=== PATIENT | female | born 1985 | race Caucasian/White ===

== ENCOUNTER → 2017-12-31 | Outpatient (CLI) | payer BC, OTHER ==
[~2017-12-31] MED LIST: ACHD5005 PO; BENZ56AE TP; CETI1TAB80 PO; FRS325T PO; IBP600T1 PO; OXYC-12 PO; PREN1TAB39 PO
--- NOTE | 2017-12-31 16:45 | Diagnostic Imaging Report ---
INDICATION: Back pain after fall 3 weeks ago. COMPARISON: None available. TECHNIQUE: Three views of the lumbar spine. FINDINGS: Lumbar spine has normal lordosis. No spondylolisthesis. Vertebral bodies are normal in stature without ankylosis. Slight levocurvature of lumbar spine may be positional or congenital in nature. SI joints are normal. Intervertebral disc space heights are preserved. No hypertrophic facet disease in the lumbar spine. IMPRESSION: 1. No fracture or malalignment in the lumbar spine. 2. No substantial degenerative changes. Dictated by: Dictated on workstation # [id number]
== END ==
LOC: RAD 16:09
PROVIDERS: ATTEND Family Medicine
DX: M54.5 Low back pain (principal); W19.XXXA Unspecified fall, initial encounter
CPT/HCPCS: 72100

== ENCOUNTER 2018-09-21 20:55 | Emergency (ER) | payer BC, OTHER ==
[~2018-09-21] VITALS: Ht 160 cm; Wt 53.5 kg
--- OUTSIDE RECORDS SUMMARY | 2018-09-21 21:12 | XMS REPORT | Continuity of Care Document ---
Author Author [facility] Organization [facility] Address Unknown Phone Unavailable Allergies Active Description Code Type Severity Reaction Onset Reported/Identified Relationship to Patient Clinical Status Yes cefprozil [id number] Drug Allergy Mild hive 07/28/2011 Yes erythromycin base [id number] Drug Allergy Mild NAUSEA 07/28/2011 Medications There is no data. Problems Date Dx Coded Attending Type Code Diagnosis Diagnosed By 07/20/2011 Ot 644.13 07/26/2011 Ot 644.13 07/30/2011 Ot 288.60 07/30/2011 Ot 646.81 07/30/2011 Ot 664.31 07/30/2011 Ot V27.0 02/05/2015 Ot 735.0 02/06/2015 CLAUDIA FROST DO S Ot 648.81 02/06/2015 FENCLADUIA DUMONT DO Ot 648.91 02/06/2015 CLAUDIA FROST DO Ot V02.51 02/06/2015 CLAUDIA FROST DO S Ot V06.1 02/06/2015 CLAUDIA FROST DO S Ot V27.0 01/03/2018 CELSO MYERS DO Ot M54.5 LOW BACK PAIN 01/03/2018 CELSO MYERS DO Ot W19.XXXA UNSPECIFIED FALL, INITIAL ENCOUNTER 01/12/2018 CELSO MYERS DO Ot M54.5 LOW BACK PAIN 01/12/2018 CELSO MYERS DO S Ot W19.XXXA UNSPECIFIED FALL, INITIAL ENCOUNTER Procedures There is no data. Results There is no data. Encounters ACCT No. Visit Date/Time Discharge Status Pt. Type Provider Facility Loc./Unit Complaint [id number] 09/15/2018 06:40:00 09/15/2018 23:59:59 CLS Preadmit ANA LAURA WANG DO [facility] RAD 14 WEEKS GESTATION OF [id number] 12/31/2017 16:09:00 12/31/2017 23:59:59 CLS Outpatient LOUIS SIEGLECELSO Raghavendra [facility] RAD M54.5 [id number] 02/04/2015 08:38:00 02/06/2015 17:00:00 DIS Inpatient MARGOT SIEGELCLAUDIA [facility] LDRP [id number] 02/05/2015 09:36:00 Document Registration [id number] 07/28/2011 10:18:00 Document Registration [id number] 07/26/2011 00:30:00 Document Registration [id number] 07/17/2010 15:14:00 Document Registration
[2018-09-21] MEDS ORDERED: AMOX500C2 (21:58)
--- NOTE | 2018-09-21 22:21 | ED Abdominal Pain ---
General Chief Complaint: Abdominal/GI Problems Stated Complaint: VOMITTING/15 WEEKS PREG Nursing Triage Note: n/v cramping, headache. 15wks Sepsis Screen: No Definite Risk Source of Information: Patient Exam Limitations: No Limitations History of Present Illness Date Seen by Provider: Sep 21, 2018 Time Seen by Provider: 22:21 Initial Comments Patient is a 33-year-old female who presents to the emergency room with complaints of nausea, vomiting, cramping and a headache. She reports that the cramping started this morning when she woke up shortly followed by nausea and vomiting. She reports that she is 15 weeks , has felt the baby move today, denies any vaginal bleeding. Timing/Duration: 12-24 Hours Severity/Quality: Cramping Location: Generalized Abdomen Associated Symptoms: Nausea/Vomiting Allergies and Home Medications Allergies Coded Allergies: Cefprozil (Verified Allergy, Mild, hive, 07/28/11) Erythromycin Base (Verified Allergy, Mild, NAUSEA, 07/28/11) Home Medications Vits W-Ca,Fe,Fa(<1MG) 1 Each Tablet, 1 EACH PO DAILY, (Reported) Patient Home Medication List Home Medication List Reviewed: Yes Review of Systems Review of Systems Constitutional: see HPI; No chills, No fever Gastrointestinal: See HPI, Abdominal Pain, Nausea, Vomiting Psychiatric/Neurological: See HPI, Headache All Other Systems Reviewed Negative Unless Noted: Yes Past Pkczaqh-Blpkqt-Esclpc Hx Past Med/Social Hx: Reviewed Nursing Past Med/Soc Hx Patient Social History Alcohol Use: Denies Use Recreational Drug Use: No Smoking Status: Never a Smoker 2nd Hand Smoke Exposure: No Recent Foreign Travel: No Contact w/Someone Who Travel: No Recent Infectious Disease Expo: No Recent Hopitalizations: No Immunizations Up To Date Tetanus Booster (TDap): Unknown Seasonal Allergies Seasonal Allergies: No Past Medical History Surgeries: Yes Orthopedic, Tonsillectomy Respiratory: No Cardiac: No Neurological: No : Yes Reproductive Disorders: No Sexually Transmitted Disease: No HIV/AIDS: No Genitourinary: No Gastrointestinal: No Musculoskeletal: No Endocrine: No HEENT: No Cancer: No Psychosocial: No Integumentary: No Blood Disorders: No Adverse Reaction/Blood Tranf: No Family Medical History Reviewed Nursing Family Hx Dementia 19 FATHER, Onset:40's - 50 Hypercholesterolemia 19 FATHER, Onset:40's - 50 19 MOTHER, Onset:30's - 40 Hypertension 19 FATHER, Onset:40's - 50 Thyroid disease 19 MOTHER, Onset:40's - 50 (HYPOTHYROIDISM) No Family History of: AIDS Abdominal aortic aneurysm Colbert's disease Alcoholism Alzheimer's disease Aphasia Arthritis Asthma Cancer of mouth Cardiovascular disease Cataracts Colon cancer Completed stroke Congenital disease Congenital heart disease Coronary thrombosis Cystic fibrosis Deafness or hearing loss Diabetes mellitus Drug abuse Dysphasia Fibrocystic disease of breast Gastroenteritis Glaucoma Headache disorder Infertility Kidney disease Myocardial infarction Neoplasm Not obtainable due to adoption Osteoporosis Parkinson's disease Prostate cancer Psychosocial problem Respiratory disorder Seizure disorder Severe allergy Tuberculosis Visual disorder Physical Exam Vital Signs Vital Signs - First Documented 09/21/18 21:55 Temp 97.5 Pulse 87 Resp 18 B/P (MAP) 108/76 (87) Pulse Ox 100 O2 Delivery Room Air Capillary Refill : Less Than 3 Seconds Height/Weight/BMI Height: 5'3.00" Weight: 118lbs. oz. 53.109333xr; 23.96 BMI Method:Stated General Appearance: WD/WN, no apparent distress Respiratory: chest non-tender, lungs clear, normal breath sounds, no respiratory distress, no accessory muscle use Cardiovascular: normal peripheral pulses, regular rate, rhythm, no edema, no gallop, no JVD, no murmur Gastrointestinal: normal bowel sounds, non tender, soft, no organomegaly, no pulsatile mass Neurologic/Psychiatric: alert, normal mood/affect, oriented x 3 Skin: normal color, warm/dry Progress/Results/Core Measures Results/Orders Lab Results Laboratory Tests Test 09/21/18 22:25 Range/Units White Blood Count 6.9 4.3-11.0 10^3/uL Red Blood Count 4.35 4.35-5.85 10^6/uL Hemoglobin 13.3 11.5-16.0 G/DL Hematocrit 38 35-52 % Mean Corpuscular Volume 87 80-99 FL Mean Corpuscular Hemoglobin 31 25-34 PG Mean Corpuscular Hemoglobin Concent 35 32-36 G/DL Red Cell Distribution Width 12.3 10.0-14.5 % Platelet Count 258 130-400 10^3/uL Mean Platelet Volume 8.8 7.4-10.4 FL Neutrophils (%) (Auto) 76 H 42-75 % Lymphocytes (%) (Auto) 15 12-44 % Monocytes (%) (Auto) 8 0-12 % Eosinophils (%) (Auto) 0 0-10 % Basophils (%) (Auto) 0 0-10 % Neutrophils # (Auto) 5.3 1.8-7.8 X 10^3 Lymphocytes # (Auto) 1.0 1.0-4.0 X 10^3 Monocytes # (Auto) 0.6 0.0-1.0 X 10^3 Eosinophils # (Auto) 0.0 0.0-0.3 10^3/uL Basophils # (Auto) 0.0 0.0-0.1 10^3/uL Urine Color YELLOW Urine Clarity SLIGHTLY CLOUDY Urine pH 5 5-9 Urine Specific Zenia 1.020 1.016-1.022 Urine Protein NEGATIVE NEGATIVE Urine Glucose (UA) NEGATIVE NEGATIVE Urine Ketones 3+ H NEGATIVE Urine Nitrite NEGATIVE NEGATIVE Urine Bilirubin NEGATIVE NEGATIVE Urine Urobilinogen NORMAL NORMAL MG/DL Urine Leukocyte Esterase 2+ H NEGATIVE Urine RBC (Auto) NEGATIVE NEGATIVE Urine RBC NONE /HPF Urine WBC 5-10 H /HPF Urine Squamous Epithelial Cells >50 H /HPF Urine Crystals NONE /LPF Urine Bacteria FEW H /HPF Urine Casts NONE /LPF Urine Mucus TRACE /LPF Urine Culture Indicated YES Sodium Level 136 135-145 MMOL/L Potassium Level 3.5 L 3.6-5.0 MMOL/L Chloride Level 103 98-107 MMOL/L Carbon Dioxide Level 22 21-32 MMOL/L Anion Gap 11 5-14 MMOL/L Blood Urea Nitrogen 8 7-18 MG/DL Creatinine 0.68 0.60-1.30 MG/DL Estimat Glomerular Filtration Rate > 60 BUN/Creatinine Ratio 12 Glucose Level 85 70-105 MG/DL Calcium Level 9.0 8.5-10.1 MG/DL Corrected Calcium 9.0 8.5-10.1 MG/DL Total Bilirubin 0.6 0.1-1.0 MG/DL Aspartate Amino Transf (AST/SGOT) 22 5-34 U/L Alanine Aminotransferase (ALT/SGPT) 10 0-55 U/L Alkaline Phosphatase 54 40-136 U/L Total Protein 7.0 6.4-8.2 GM/DL Albumin 4.0 3.2-4.5 GM/DL Amylase Level 36 25-125 U/L Lipase 22 8-78 U/L My Orders Conner - ROZ CAZARES Comprehensive Metabolic Panel (09/21/18 22:19) Lipase (09/21/18 22:19) Amylase (09/21/18 22:19) Ua Culture If Indicated (09/21/18 22:19) Saline Lock/Iv-Start (09/21/18 22:19) Cbc With Automated Diff (09/21/18 22:19) Ondansetron Injection (Zofran Injectio (09/21/18 22:30) Acetaminophen Tablet/Caplet (Tylenol T (09/21/18 22:30) Urine Culture (09/21/18 22:25) Medications Given in ED Current Medications Medications Dose Ordered Sig/Marcello Route Start Time Stop Time Status Last Admin Dose Admin Acetaminophen 650 mg ONCE ONCE PO 09/21/18 22:30 09/21/18 22:31 DC 09/21/18 22:30 650 MG Ondansetron HCl 4 mg ONCE ONCE IVP 09/21/18 22:30 09/21/18 22:31 DC 09/21/18 22:28 4 MG Vital Signs/I&O 09/21/18 09/21/18 21:55 22:30 Temp 97.5 97.5 Pulse 87 Resp 18 B/P (MAP) 108/76 (87) Pulse Ox 100 O2 Delivery Room Air Blood Pressure Mean: 87 Departure Impression Primary Impression: Nausea and vomiting Disposition: 01 HOME, SELF-CARE Condition: Stable/Unchanged Departure-Patient Inst. Decision time for Depature: 23:01 Referrals: CELSO MYERS DO (PCP/Family) Primary Care Physician Patient Instructions: Nausea and Vomiting of (DC) Add. Discharge Instructions: Take medication as directed. Tylenol as directed by the bottle for pain relief. Clear liquid diet and advance as tolerated. Follow-up with your primary care provider and or CONCEPT ARTIST as needed. Return back to the emergency room for any worsening symptoms or concerns as needed. All discharge instructions reviewed with patient and/or family. Voiced understanding. Scripts Ondansetron HCl (Zofran) 4 Mg Tab 4 MG PO PRN, #14 TAB Prov: ROZ CAZARES 09/21/18 ROZ CAZARES Sep 21, 2018 22:21
[2018-09-21] MEDS ORDERED: ONDANSETRON 4 MG/2 ML (SDV) Z0FRAN IVP ONE (22:30)
[2018-09-21] MEDS ORDERED: ACETAMINOPHEN 325 MG TABLET PO ONE (22:30)
[2018-09-21 22:38] LABS: BASOPHILS % (AUTO) 0 % (0-10); EOSINOPHILS % (AUTO) 0 % (0-10); HEMATOCRIT 38 % (35-52); HEMOGLOBIN 13.3 G/DL (11.5-16.0); LYMPHOCYTES % (AUTO) 15 % (12-44); MEAN CORPUSCULAR HEMOGLOBIN 31 PG (25-34); MEAN CORPUSCULAR HGB CONC 35 G/DL (32-36); MEAN CORPUSCULAR VOLUME 87 FL (80-99); MEAN PLATELET VOLUME 8.8 FL (7.4-10.4); MONOCYTES # (AUTO) 0.6 X 10^3 (0.0-1.0); MONOCYTES % (AUTO) 8 % (0-12); NEUTROPHILS # (AUTO) 5.3 X 10^3 (1.8-7.8); NEUTROPHILS % (AUTO) 76 % (42-75); PLATELET COUNT 258 10^3/uL (130-400); RED BLOOD COUNT 4.35 10^6/uL (4.35-5.85); RED CELL DISTRIBUTION WIDTH 12.3 % (10.0-14.5); WHITE BLOOD COUNT 6.9 10^3/uL (4.3-11.0)
[2018-09-21 22:39] LABS: BILIRUBIN,URINE NEGATIVE (NEGATIVE); CLARITY,URINE SLIGHTLY CLOUDY; COLOR,URINE YELLOW; GLUCOSE, URINE (UA) NEGATIVE (NEGATIVE); KETONES,URINE 3+ (NEGATIVE); LEUKOCYTE ESTERASE ,URINE 2+ (NEGATIVE); NITRITE,URINE NEGATIVE (NEGATIVE); PH,URINE 5 (5-9); PROTEIN,URINE NEGATIVE (NEGATIVE); UROBILINOGEN,URINE NORMAL (NORMAL)
[2018-09-21 22:51] LABS: BACTERIA,URINE FEW /HPF; SQUAMOUS EPITHELIAL CELL,UR >50 /HPF
[2018-09-21 22:58] LABS: ALANINE AMINOTRANSFERASE 10 U/L (0-55); ALKALINE PHOSPHATASE 54 U/L (40-136); AMYLASE 36 U/L (25-125); BILIRUBIN,TOTAL 0.6 MG/DL (0.1-1.0); BUN/CREATININE RATIO 12; CARBON DIOXIDE 22 MMOL/L (21-32); CHLORIDE 103 MMOL/L (98-107); CREATININE SERUM 0.68 MG/DL (0.60-1.30); GFR ESTIMATED > 60; GLUCOSE 85 MG/DL (70-105); LIPASE 22 U/L (8-78); POTASSIUM 3.5 MMOL/L (3.6-5.0); SODIUM 136 MMOL/L (135-145)
[2018-09-21] MEDS ORDERED: ONDN4T PO (23:03)
[2018-09-21] MEDS ORDERED: RX-ONDANSETRON 4 MG ODT (ZOFRAN) PPK #4 PO STA (23:04)
[2018-09-21 23:11] VITALS: BP 97/62
== END 2018-09-21 23:12 | disposition home or self-care (01) ==
LOC: EDUNIT# 20:55 → ER 20:57
DX: O21.9 Vomiting of pregnancy, unspecified (principal); Z3A.15 15 weeks gestation of pregnancy; Z88.0 Allergy status to penicillin; Z88.8 Allergy status to other drugs, medicaments and biological substances; Z90.89 Acquired absence of other organs; Z82.49 Family history of ischemic heart disease and other diseases of the circulatory system
CPT/HCPCS: 36415; 80053; 81000; 82150; 83690; 85025; 87088

== ENCOUNTER → 2018-10-31 | Outpatient (CLI) | payer BC, OTHER ==
[~2018-10-31] MED LIST changes: +AMOX500C2; +ONDN4T PO
--- NOTE | 2018-10-31 11:30 | Diagnostic Imaging Report ---
INDICATION: survey. TECHNIQUE: Multiple real-time grayscale images were obtained over the gravid uterus. COMPARISON: None. FINDINGS: There is a single live fetus in a cephalic presentation. heart rate was recorded at 134 beats per minute. Placenta is posterior. Amniotic fluid volume is normal. Cervical length is 4.8 cm. survey demonstrates kidneys, bladder and stomach to be unremarkable. brain is unremarkable. There is a four-chamber heart. There is a three-vessel cord with normal insertion. spine is somewhat limited due to position. Biometrical measurements are as follows: Biparietal 4.87 cm, age 20 weeks 6 days. Head circumference 19.29 cm, age 21 weeks 4 days. Abdominal circumference 16.41 cm, age 21 weeks 4 days. Femur length 3.64 cm, age 21 weeks 4 days. Sonographic estimate age: 21 weeks 3 days. Sonographic estimated date of delivery: 03/10/2019. Estimated Weight: 427 gm (+/- 62 gm). LMP percentile: 55%. heart rate: 134 beats per minute. number: 1 of 1. IMPRESSION: Single live IUP 21 weeks 3 days gestational age. Estimated date of confinement sonographically is 03/10/2019. survey is unremarkable although spine is somewhat limited due to position. Followup could be performed. Dictated by: Dictated on workstation # [id number]
== END ==
LOC: RAD 10:05
PROVIDERS: ATTEND Obstetrics & Gynecology
DX: Z36.89 Encounter for other specified antenatal screening (principal); Z3A.21 21 weeks gestation of pregnancy
CPT/HCPCS: 76805

== ENCOUNTER 2018-12-22 14:57 | Outpatient (CLI) | payer BC, OTHER ==
[~2018-12-22] VITALS: Ht 160 cm; Wt 63.1 kg
--- NOTE | 2018-12-22 14:55 | NUR ---
JOHANA DOAN presented to unit via AMB from DR. WANG, accompanied by SPOUSE, with c/o UPPER QUANTRANT PAIN. JOHANA DOAN weighed, gowned, voided, and to bed. 1500 EFHM and TOCO applied, VS taken. JOHANA DOAN oriented to bed controls, call light, TV, heat, and A/C controls.
[~2018-12-22 14:57] MED LIST changes: -OMEP20TA33 PO
[2018-12-22 15:00] VITALS: BP 120/79
[2018-12-22] MEDS ORDERED: D5 LR IV SOLUTION 1,000 ML IV SCH (15:01)
[2018-12-22] MEDS ORDERED: PROMETHAZINE INJ 25 MG/ML (PHENERGAN) AMP IVP PRN (15:15)
[2018-12-22] MEDS ORDERED: MEPERIDINE (DEMEROL) INJ 50 MG/ML IVP ONE (15:15)
[2018-12-22] MEDS ORDERED: ANTACID SUSP 30 ML UDC (MYLANTA) PO ONE (15:30)
[2018-12-22] MEDS ORDERED: DONNATAL PO ONE (15:30)
[2018-12-22] MEDS ORDERED: LIDOCAINE 2% VISCOUS 15 ML UDC PO ONE (15:30)
--- NOTE | 2018-12-22 15:40 | NUR ---
DR. WANG ON UNIT. REVIEWED MONITOR STRIP. FEBRUARY D/C. UTERINE IRRITABILITY AND MOVEMENT NOTED. FHR INITIALLY 135 AND 130 AT END OF TRACING WITH ACCELS NOTED. MOD VARIABILITY NOTED AND APPROPRIATE FOR GESTATIONAL AGE. ULTRASOUND HERE TO DO A GALLBLADDER SONOGRAM. EFM OFF.
[2018-12-22 15:57] LABS: ALANINE AMINOTRANSFERASE 18 U/L (0-55); ALBUMIN 3.6 GM/DL (3.2-4.5); ALKALINE PHOSPHATASE 96 U/L (40-136); BILIRUBIN,TOTAL 0.3 MG/DL (0.1-1.0); BUN/CREATININE RATIO 10; CALCIUM 8.6 MG/DL (8.5-10.1); CARBON DIOXIDE 22 MMOL/L (21-32); CHLORIDE 107 MMOL/L (98-107); CREATININE SERUM 0.62 MG/DL (0.60-1.30); GFR ESTIMATED > 60; GLUCOSE 87 MG/DL (70-105); POTASSIUM 3.5 MMOL/L (3.6-5.0); SODIUM 137 MMOL/L (135-145); TOTAL PROTEIN 6.4 GM/DL (6.4-8.2)
--- NOTE | 2018-12-22 17:00 | NUR ---
CONTINUES TO RECEIVE IV FLUIDS. SPOUSE AT BEDSIDE.
--- NOTE | 2018-12-22 17:42 | Diagnostic Imaging Report ---
CLINICAL INDICATION: Patient with acute right upper quadrant pain. EXAM: Right upper quadrant ultrasound. COMPARISON: Ultrasound of the right upper quadrant dated 06/05/2007. FINDINGS: Limited exam due to patient's body habitus and overlying bowel gas which limits evaluation of the abdominal structures. The pancreas is not visualized on this exam and obscured by overlying bowel gas. The visualized portion of the liver has normal echogenicity and echotexture. The liver surface is smooth. The liver measures 13.3 cm in craniocaudal dimension. There is no gross liver mass seen. There is no intrahepatic or extrahepatic ductal dilatation. The common bile duct measures 4 mm. Gallbladder shows no evidence of sludge or stone. Gallbladder wall is 3 mm which is upper limits of normal and nonspecific. There is no pericholecystic fluid. There is no sonographic Alonso sign. Gallbladder is hvky-lb-gzfwuxzghe distended. The right kidney has normal echogenicity, size, and shape but no hydronephrosis or mass. The right kidney measures 9.8 cm in craniocaudal dimension. There is no intra-abdominal free fluid. IMPRESSION: 1: Limited exam due to overlying bowel gas and patient's body habitus. 2: Incomplete visualization of the pancreas. If there is clinical concern for pancreatic abnormality, serology tests may better evaluate. 3: Otherwise, there is no evidence of acute abnormality on this ultrasound exam. 4: Gallbladder is unremarkable as visualized. Dictated by: Dictated on workstation # [id number]
[2018-12-22 18:22] VITALS: BP 113/69
--- NOTE | 2018-12-22 18:45 | NUR ---
VSS. REPORTS A DIARRHEA STOOL. PT FLUSHED IT. SPOUSE LEFT TO HAVE RX FILLED. RATES PAIN 3/10 IN RUQ.
--- NOTE | 2018-12-22 19:15 | NUR ---
REPORT TO PERICO ANTONIO.
[2018-12-22] MEDS ORDERED: OMEP20TA33 PO (19:29)
--- NOTE | 2018-12-22 20:10 | NUR ---
IV removed. Discharge instructions reviewed with pt. Pt verbalizes understanding, and signs discharge paperwork.
--- NOTE | 2018-12-22 20:19 | NUR ---
Pt. walked out with
[2018-12-22] MEDS ORDERED: CATHETER FLUSH 10 ML SYR IV SCH (22:00)
== END 2018-12-22 18:10 | disposition home or self-care (01) ==
LOC: WSo 14:57 → LDRP 15:00 → WSo 18:10
PROVIDERS: ATTEND Obstetrics & Gynecology
DX: O99.89 Other specified diseases and conditions complicating pregnancy, childbirth and the puerperium (principal); R10.11 Right upper quadrant pain
CPT/HCPCS: 36415; 76705; 80053; 96361; 96374; 99213

== ENCOUNTER → 2018-12-22 | Outpatient (CLI) | payer BC, OTHER ==
[~2018-12-22] MED LIST changes: +OMEP20TA33 PO
--- NOTE | 2018-12-22 16:47 | Diagnostic Imaging Report ---
INDICATION: Follow up anatomy. TECHNIQUE: Multiple real-time grayscale images were obtained over the gravid uterus. COMPARISON: 10/31/2018. FINDINGS: There is a single live fetus in a cephalic presentation. heart rate was recorded at 167 beats per minute. Placenta is posterior. The amniotic fluid volume is normal. Evaluation of the spine was performed. spine is unremarkable on today's study. Biometrical measurements are as follows: Biparietal 7.60 cm, age 30 weeks 4 days. Head circumference 27.67 cm, age 30 weeks 2 days. Abdominal circumference 25.78 cm, age 30 weeks 0 days. Femur length 5.63 cm, age 29 weeks 5 days. Sonographic estimate age: 30 weeks 1 days. Sonographic estimated date of delivery: 03/01/2019. Estimated Weight: 1475 gm (+/- 215 gm). LMP percentile: 81%. heart rate: 167 beats per minute. number: 1 of 1. IMPRESSION: Single live IUP of approximately 30 weeks gestational age. spine was better visualized on today's study and appears unremarkable. Dictated by: Dictated on workstation # [id number]
== END ==
LOC: RAD 13:04
PROVIDERS: ATTEND Obstetrics & Gynecology
DX: Z36.89 Encounter for other specified antenatal screening (principal); Z3A.30 30 weeks gestation of pregnancy
CPT/HCPCS: 76816

== ENCOUNTER 2019-02-13 16:25 | Outpatient (CLI) | payer BC, OTHER ==
[~2019-02-13] VITALS: Ht 160 cm; Wt 67.2 kg
--- NOTE | 2019-02-13 16:16 | NUR ---
JOHANA DOAN presented to unit via AMBULATORY from HOME, accompanied by MOTHER, with c/o CONTRACTIONS. JOHANA DOAN weighed, gowned, voided, and to bed. EFHM and TOCO applied, VS taken. JOHANA DOAN oriented to bed controls, call light, TV, heat, and A/C controls.
[~2019-02-13 16:25] MED LIST changes: +OMEP20TA33 PO
[2019-02-13 16:28] VITALS: BP 121/72
[2019-02-13 16:52] LABS: BILIRUBIN,URINE NEGATIVE (NEGATIVE); CLARITY,URINE CLEAR; COLOR,URINE YELLOW; GLUCOSE, URINE (UA) NEGATIVE (NEGATIVE); KETONES,URINE NEGATIVE (NEGATIVE); LEUKOCYTE ESTERASE ,URINE 2+ (NEGATIVE); NITRITE,URINE NEGATIVE (NEGATIVE); PH,URINE 6.5 (5-9); PROTEIN,URINE NEGATIVE (NEGATIVE); UROBILINOGEN,URINE NORMAL (NORMAL)
[2019-02-13 17:15] LABS: BACTERIA,URINE MODERATE /HPF
--- NOTE | 2019-02-13 17:35 | NUR ---
DR. PIZANO NOTIFIED OF PT'S ARRIVAL, , 36.2 WEEKS, C/O CTXS, SVE X2, REVIEW OF STRIP, UA RESULTS, NEW ORDERS RECEIVED.
[2019-02-13] MEDS ORDERED: D5 LR IV SOLUTION 1,000 ML IV ONE (17:46)
--- NOTE | 2019-02-13 17:47 | NUR ---
DR. PIZANO CALLED FOR CLARIFICATION ON ABX DUE TO ALLERGY. NEW ORDER RECEIVED.
[2019-02-13] MEDS: D5 LR IV SOLUTION 1,000 ML IV SCH (18:00)
[2019-02-13] MEDS ORDERED: CATHETER FLUSH 10 ML SYR IV PRN (18:00)
[2019-02-13] MEDS ORDERED: CLINDAMYCIN 900 MG/50 ML IVPB 50 ML IV ONE (18:00)
[2019-02-13] MEDS: CLINDAMYCIN 900 MG/50 ML IVPB 50 ML IV SCH (18:06)
[2019-02-13] MEDS ORDERED: CETI1TAB61 PO (18:21)
[2019-02-13] MEDS ORDERED: PARO10TA81 PO (18:22)
--- NOTE | 2019-02-13 19:00 | NUR ---
REFER TO LABOR FLOW SHEET.
--- NOTE | 2019-02-13 19:18 | NUR ---
DR. PIZANO NOTIFIED OF LATEST SVE, REVIEW OF STRIP, CURRENT PAIN. NEW ORDERS RECEIVED.
[2019-02-13] MEDS ORDERED: BUTORPHANOL INJ 2 MG/ML (STADOL) VIAL ONE (20:14)
[2019-02-13] MEDS ORDERED: BUTORPHANOL INJ 2 MG/ML (STADOL) VIAL IV ONE (20:15)
[2019-02-14] MEDS: D5 LR IV SOLUTION 1,000 ML IV SCH ×2 (01:09→07:34)
[2019-02-14] MEDS: CLINDAMYCIN 900 MG/50 ML IVPB 50 ML IV SCH (01:50)
[2019-02-14 02:00] VITALS: BP 98/57
[2019-02-14 07:25] VITALS: BP 118/69
--- NOTE | 2019-02-14 07:30 | NUR ---
ASSESSMENT COMPLETED. VSS. OCC CTX.
--- NOTE | 2019-02-14 07:54 | NUR ---
ORDER TO GIVE PT A REGULAR DIET AND TO SEND HOME IF NO CTXS.
--- NOTE | 2019-02-14 09:43 | NUR ---
EATING REGULAR DIET. PREPARING FOR DISCHARGE.
[2019-02-14 10:00] VITALS: BP 118/69
--- NOTE | 2019-02-14 10:00 | NUR ---
DISMISSED AMB FROM WS IN STABLE CONDITION ACC BY MOTHER.
--- NOTE | 2019-02-15 16:05 | Physician Query-Final Dx ---
Clinic Account Progress/Dx DIAGNOSIS: Date Seen by Provider: Feb 14, 2019 Time Seen by Provider: 00:00 Intrauterine at 36 2/7 weeks 2. Pelvic Pain 3. Threatened Labor 4. UTI Gestational Age in Weeks: 36 Gestational Age in Days: 25 Progress Note: Ms. Swift was not physically seen by me. Was managed over the telephone and discharge. She was diagnosed with gestation at 36 2/7 weeks, Pelvic Pain, Threatened Labor, and UTI. After treatment with IV fluids and IV antibiotics, she was discharged to home. MERRY Mcduffie February 15, 2019 16:05 DELROY PIZANO DO February 20, 2019 07:24
== END 2019-02-14 10:00 | disposition home or self-care (01) ==
LOC: WSo 16:25 → LDRP 16:25 → WSo 02-14 10:00
PROVIDERS: ATTEND Obstetrics & Gynecology
DX: O23.43 Unspecified infection of urinary tract in pregnancy, third trimester (principal); O47.03 False labor before 37 completed weeks of gestation, third trimester; Z3A.36 36 weeks gestation of pregnancy
CPT/HCPCS: 81000; 87088; 96361; 96374; 96375; 96376; 99214

== ENCOUNTER 2019-02-15 11:42 | Inpatient (IN) | payer BC, OTHER ==
[~2019-02-15] VITALS: Ht 160 cm; Wt 67.2 kg
--- NOTE | 2019-02-15 11:40 | NUR ---
Arrived to floor from office for labor. Wt obtained and to room 317. Gowned and urine sample obtained. To bed and oriented to room, call light and surroundings. family at bedside.
[~2019-02-15 11:42] MED LIST changes: +CETI1TAB61 PO; +PARO10TA81 PO
[2019-02-15 12:00] VITALS: BP 126/72
[2019-02-15] MEDS ORDERED: MINERAL OIL CONCENTRATE 99.9% 15 ML UDC TOP PRN (12:00)
[2019-02-15] MEDS ORDERED: AMPICILLIN FOR IV USE 2,000 MG in WATER (STERILE) FOR INJECTION 14.8 ML IV NR (12:00)
--- NOTE | 2019-02-15 12:00 | NUR ---
Dr Gilman notified of pt arrival for orders.
[2019-02-15] MEDS ORDERED: morphine INJ 4 MG/ML 1 ML (VIAL/SYRINGE) IVP PRN (12:15)
[2019-02-15] MEDS: BETAMETHASONE ACE/NA PHOS 6 MG/ML (CELESTONE SOLUSPAN) IM SCH (13:01)
[2019-02-15] MEDS: D5 LR IV SOLUTION 1,000 ML IV SCH ×2 (13:02→20:44)
[2019-02-15 13:08] LABS: BASOPHILS % (AUTO) 0 % (0-10); EOSINOPHILS % (AUTO) 0 % (0-10); HEMATOCRIT 35 % (35-52); HEMOGLOBIN 12.5 G/DL (11.5-16.0); LYMPHOCYTES # (AUTO) 1.9 X 10^3 (1.0-4.0); LYMPHOCYTES % (AUTO) 14 % (12-44); MEAN CORPUSCULAR HEMOGLOBIN 32 PG (25-34); MEAN CORPUSCULAR HGB CONC 36 G/DL (32-36); MEAN CORPUSCULAR VOLUME 90 FL (80-99); MEAN PLATELET VOLUME 9.5 FL (7.4-10.4); MONOCYTES # (AUTO) 0.9 X 10^3 (0.0-1.0); MONOCYTES % (AUTO) 7 % (0-12); NEUTROPHILS # (AUTO) 10.6 X 10^3 (1.8-7.8); NEUTROPHILS % (AUTO) 79 % (42-75); PLATELET COUNT 293 10^3/uL (130-400); RED CELL DISTRIBUTION WIDTH 13.1 % (10.0-14.5); WHITE BLOOD COUNT 13.4 10^3/uL (4.3-11.0)
[2019-02-15 14:20] VITALS: BP 103/58
[2019-02-15] MEDS: AMPICILLIN FOR IV USE 1,000 MG in WATER (STERILE) FOR INJECTION 7.4 ML IV SCH ×2 (17:13→20:49)
[2019-02-15] MEDS: CATHETER FLUSH 10 ML SYR IV SCH (17:13)
[2019-02-15] MEDS ORDERED: CALCIUM CARBONATE 500 MG (TUMS) TAB.CHEW PO ONE (18:15)
[2019-02-15] MEDS ORDERED: CALCIUM CARBONATE 500 MG (TUMS) TAB.CHEW ONE (18:27)
[2019-02-15 18:30] VITALS: BP 115/57
[2019-02-15 19:45] VITALS: BP 131/72
--- NOTE | 2019-02-15 22:42 | NUR ---
Pt called this RN into the room for pain medication, pt offered MS 2 mg at this time, pt receptive to this avenue of care.
[2019-02-15 23:50] VITALS: BP 120/76
[2019-02-16] VITALS (41 sets, daily range): BP systolic 92–143; BP diastolic 54–82
[2019-02-16] MEDS: AMPICILLIN FOR IV USE 1,000 MG in WATER (STERILE) FOR INJECTION 7.4 ML IV SCH ×3 (01:39→09:30)
[2019-02-16] MEDS: CATHETER FLUSH 10 ML SYR IV SCH ×2 (01:39→06:22)
[2019-02-16] MEDS: D5 LR IV SOLUTION 1,000 ML IV SCH ×2 (05:28→13:35)
[2019-02-16] MEDS ORDERED: BUPIVACAINE 0.25% 30 ML (SENSORCAINE) VIAL ONE (09:39)
[2019-02-16] MEDS ORDERED: fentaNYL INJECTION 100 MCG/2 ML AMP ONE (09:39)
[2019-02-16] MEDS ORDERED: SUFENTA 0.6MCG/ML BUPIVA 0.125 100 ML ONE (09:44)
[2019-02-16] MEDS: BETAMETHASONE ACE/NA PHOS 6 MG/ML (CELESTONE SOLUSPAN) IM SCH (10:05)
[2019-02-16] MEDS ORDERED: LACTATED RINGERS 1,000 ML IV ONE (10:25)
[2019-02-16] MEDS ORDERED: ONDANSETRON 4 MG/2 ML (SDV) Z0FRAN IV PRN (10:30)
[2019-02-16] MEDS ORDERED: EPIDURAL (SUFENTA 0.6MCG/ML BUPIVA 0.125%) 100 ML BAG EPI PRN (10:30)
[2019-02-16] MEDS ORDERED: diphenhydrAMINE 50 MG/ML INJ (BENADRYL) IV PRN (10:30)
[2019-02-16] MEDS ORDERED: NALOXONE 0.4 MG/ML 1 ML (NARCAN) VIAL IV PRN ×2 (10:30)
[2019-02-16] MEDS ORDERED: METOCLOPRAMIDE INJ 10 MG/2 ML (REGLAN) IV PRN (10:30)
[2019-02-16] MEDS ORDERED: OXYTOCIN/NORMAL SALINE 500 ML IV ONE (10:59)
--- NOTE | 2019-02-16 14:45 | NUR ---
dr rodriguez notified of patient status. continuing to monitor patient expectantly
[2019-02-16] MEDS ORDERED: OXYTOCIN/NORMAL SALINE 500 ML IV SCH (16:40)
--- NOTE | 2019-02-16 16:44 | OB Labor & Delivery Record ---
Vag Delivery Note Vag Delivery Note Date of Delivery: 02/16/19 Preoperative Diagnosis: Jordyn Swift is a 34 /Para 3/ 2,Gestational Age 36 5/7 weeks, labor, GBS + Postoperative Diagnosis: Same Surgeon: ANA LAURA WANG Anesthesia: epidural Delivery Type: vaginal Findings: Viable female , apgars [], weight 8#2oz Lacerations: none Intact placenta with 3 vessel cord. No nuchal cord, body cord or shoulder dystocia Estimated Blood Loss: 250 ml Complications: None Condition: Stable Description of Procedure: The patient is a 34 year old female who presented to clinic in labor. GBS +. She was admitted and informed consent was obtained. Her labor course was remarkable for betamethasone and ampicillin. She received 7 doses of IV ampicillin. She had epidural and ROM with clear fluid. then augmentation. She progressed to complete dilatation and began to push. She was then set up for delivery. The infant's head was delivered atraumatically in the KYLE position. The shoulders and remainder of the infant's body were then delivered without difficulty. Upon delivery, the head was held below the level of the perineum and the mouth and nares were bulb suctioned. The cord was doubly clamped and cut and the infant was handed off to the pediatric staff. An intact placenta with 3-vessel cord delivered via Eleonora and there was found to be minimal bleeding.~ Vigorous fundal massage was performed and the fundus was found to be firm. IV oxytocin was given. Examination of the vagina and perineum revealed no laceration. Following the delivery, sponge, instrument and needle counts were correct. Mom and baby were both in stable condition in the labor suite. Vitals - Labs Vital Signs - I&O Vital Signs Date Time Temp Pulse Resp B/P (MAP) Pulse Ox O2 Delivery O2 Flow Rate FiO2 02/16/19 16:05 98.0 82 20 134/64 (87) Room Air 02/16/19 15:50 98.8 90 20 135/68 (90) Room Air 02/16/19 15:35 98.5 104 20 134/78 (96) 100 Room Air 02/16/19 15:20 101 20 112/67 (82) 98 Room Air 02/16/19 15:05 86 20 99 Room Air 02/16/19 14:50 94 20 131/75 (93) 99 Room Air 02/16/19 14:35 92 20 120/71 (87) 93 Room Air 02/16/19 14:20 93 20 132/69 (90) 98 Room Air 02/16/19 14:05 73 20 120/74 (89) 94 Room Air 02/16/19 13:50 88 20 120/74 (89) 97 Room Air 02/16/19 13:35 86 20 132/71 (91) 98 Room Air 02/16/19 13:20 95 20 118/71 (87) 98 Room Air 02/16/19 13:05 71 20 121/71 (88) 98 Room Air 02/16/19 12:50 80 18 120/70 (87) 98 Room Air 02/16/19 12:35 82 18 121/76 (91) 99 Room Air 02/16/19 12:20 97.7 88 18 129/82 (98) 99 Room Air 02/16/19 12:05 90 18 120/76 (91) 100 Room Air 02/16/19 11:50 100 18 112/68 (83) 99 Room Air 02/16/19 11:35 85 18 107/59 (75) 97 Room Air 02/16/19 11:20 90 18 120/68 (85) 98 Room Air 02/16/19 11:15 92 18 117/64 (81) 99 Room Air 02/16/19 11:00 94 18 117/64 (81) 98 Room Air 02/16/19 10:45 96 18 115/74 (88) 98 Room Air 02/16/19 10:30 106 20 118/64 (82) 98 Room Air 02/16/19 10:25 115 20 117/63 (81) 98 Room Air 02/16/19 10:20 109 20 117/63 (81) 99 Room Air 02/16/19 10:15 106 20 92/54 (67) 97 Room Air 02/16/19 10:10 114 20 106/55 (72) 99 Room Air 02/16/19 10:05 110 20 119/62 (81) 98 Room Air 02/16/19 10:00 98 20 128/80 (96) 98 Room Air 02/16/19 09:55 114 20 127/72 (90) 9 Room Air 02/16/19 09:50 114 20 124/74 (91) 100 Room Air 02/16/19 09:30 95 20 112/61 (78) Room Air 02/16/19 09:00 96.7 109 20 123/73 (90) Room Air 02/16/19 03:00 96.9 75 18 117/64 (81) Room Air 02/15/19 23:50 97.6 94 18 120/76 (91) Room Air 02/15/19 19:45 96.9 94 18 131/72 (91) Room Air 02/15/19 18:30 97 18 115/57 (76) Room Air I & O 02/16/19 07:00 Intake Total 2514.8 ml Balance 2514.8 ml ANA LAURA WANG DO February 16, 2019 16:44
[2019-02-16] MEDS ORDERED: WITCH HAZEL(TUCKS) 40 EA JAR TOP PRN (16:45)
[2019-02-16] MEDS ORDERED: TETANUS,DIPTH,PERTUSS P/F (BOOSTRIX) 0.5 ML VIAL IM ONE (16:45)
[2019-02-16] MEDS ORDERED: BENZOCAINE/MENTHOL (DERMOPLAST) 56 ML CAN TP PRN (16:45)
[2019-02-16] MEDS ORDERED: MEASLES,MUMPS,RUBELLA 1 EA INJ SQ ONE (16:45)
[2019-02-16] MEDS ORDERED: ACET-77 PO ×2 (17:05)
[2019-02-16] MEDS ORDERED: IBUP-844 PO ×2 (17:05)
--- NOTE | 2019-02-16 17:06 | Discharge Inst-Women's Service ---
Discharge Inst-Women's Serv Depart Medication/Instructions New, Converted or Re-Newed RX: Transmitted to Pharmacy Final Diagnosis labor GBS + vaginal delivery Consults/Follow Up Additional Follow Up: Yes Activity Activity: Activity as Tolerated Driving Instructions: You May Drive NO SMOKING: NO SMOKING Nothing Inside Vagina: No Douching, No [place], No Tampons Diet Discharge Diet: No Restrictions Symptoms to Report to : Swelling Increased, Pain Increased, Fever Over 101 Degrees F, Vaginal Bleeding Increase, Cramps in Feet or Legs, Vaginal Discharge Foul For Any Problems or Questions: Contact Your Physician ANA LAURA WANG DO February 16, 2019 17:06
[2019-02-16] MEDS: IBUPROFEN 600 MG (MOTRIN) TAB PO SCH (19:50)
[2019-02-16] MEDS: DOCUSATE SODIUM 100 MG (COLACE) CAP PO SCH (19:50)
--- NOTE | 2019-02-16 20:21 | NUR ---
Patient ambulating in halls to [facility] to see infant.
[2019-02-16] MEDS: ACETAMINOPHEN 500 MG TAB (TYLENOL) PO SCH (21:15)
[2019-02-16] MEDS ORDERED: CATHETER FLUSH 10 ML SYR IV SCH (22:00)
[2019-02-17 00:14] VITALS: BP 117/67
[2019-02-17] MEDS: IBUPROFEN 600 MG (MOTRIN) TAB PO SCH ×4 (02:29→20:24)
[2019-02-17 04:12] VITALS: BP 126/68
[2019-02-17] MEDS: ACETAMINOPHEN 500 MG TAB (TYLENOL) PO SCH ×3 (06:12→23:20)
[2019-02-17 06:37] LABS: BASOPHILS % (AUTO) 0 % (0-10); EOSINOPHILS % (AUTO) 0 % (0-10); HEMATOCRIT 35 % (35-52); HEMOGLOBIN 11.9 G/DL (11.5-16.0); LYMPHOCYTES # (AUTO) 2.2 X 10^3 (1.0-4.0); LYMPHOCYTES % (AUTO) 8 % (12-44); MEAN CORPUSCULAR HEMOGLOBIN 31 PG (25-34); MEAN CORPUSCULAR HGB CONC 34 G/DL (32-36); MEAN CORPUSCULAR VOLUME 92 FL (80-99); MEAN PLATELET VOLUME 9.4 FL (7.4-10.4); MONOCYTES # (AUTO) 1.8 X 10^3 (0.0-1.0); MONOCYTES % (AUTO) 7 % (0-12); NEUTROPHILS # (AUTO) 22.9 X 10^3 (1.8-7.8); NEUTROPHILS % (AUTO) 85 % (42-75); PLATELET COUNT 291 10^3/uL (130-400); WHITE BLOOD COUNT 26.9 10^3/uL (4.3-11.0)
[2019-02-17 07:10] LABS: BAND NEUTROPHILS 0 %; BASOPHILS % (MANUAL) 0 %; EOSINOPHILS % (MANUAL) 0 %; LYMPHOCYTES % (MANUAL) 10 %; MONOCYTES % (MANUAL) 2 %; NEUTROPHILS % (MANUAL) 88 %; RBC MORPH NORMAL
--- NOTE | 2019-02-17 07:17 | Anesthesia-Regional Post-Op ---
Regional Patient Condition Mental Status: Alert, Oriented x3 Circulation: Same as Pre-Op Headache: Absent Sensation: Full Recovery Motor Block: Absent Post Op Complications Complications None Follow Up Care/Instructions Patient Instructions None needed. Anesthesia/Patient Condition Patient is doing well, no complaints, stable vital signs, no apparent adverse anesthesia problems. No complications reported per nursing. D/C home per [facility] Criteria: COLLEEN Garland CRNA February 17, 2019 07:17
--- NOTE | 2019-02-17 07:50 | Postpartum Progress Note ---
Note Note Day # 1 s/p Subjective: Patient is without complaints. Ambulating, voiding. Tolerating a regular diet without nausea or vomiting. Normal lochia. Pain is well controlled with oral pain medications. breast feeding. Objective: Laboratory Tests Test 02/17/19 06:30 Range/Units White Blood Count 26.9 H 4.3-11.0 10^3/uL Red Blood Count 3.83 L 4.35-5.85 10^6/uL Hemoglobin 11.9 11.5-16.0 G/DL Hematocrit 35 35-52 % Mean Corpuscular Volume 92 80-99 FL Mean Corpuscular Hemoglobin 31 25-34 PG Mean Corpuscular Hemoglobin Concent 34 32-36 G/DL Red Cell Distribution Width 13.0 10.0-14.5 % Platelet Count 291 130-400 10^3/uL Mean Platelet Volume 9.4 7.4-10.4 FL Neutrophils (%) (Auto) 85 H 42-75 % Lymphocytes (%) (Auto) 8 L 12-44 % Monocytes (%) (Auto) 7 0-12 % Eosinophils (%) (Auto) 0 0-10 % Basophils (%) (Auto) 0 0-10 % Neutrophils # (Auto) 22.9 H 1.8-7.8 X 10^3 Lymphocytes # (Auto) 2.2 1.0-4.0 X 10^3 Monocytes # (Auto) 1.8 H 0.0-1.0 X 10^3 Eosinophils # (Auto) 0.0 0.0-0.3 10^3/uL Basophils # (Auto) 0.0 0.0-0.1 10^3/uL Neutrophils % (Manual) 88 % Lymphocytes % (Manual) 10 % Monocytes % (Manual) 2 % Eosinophils % (Manual) 0 % Basophils % (Manual) 0 % Band Neutrophils 0 % Blood Morphology Comment NORMAL 02/16/19 02/17/19 02/17/19 19:50 00:14 04:12 Temp 98.2 97.6 98.2 Pulse 74 55 51 Resp 18 18 18 B/P (MAP) 143/77 (99) 117/67 (84) 126/68 (87) Pulse Ox 98 95 96 O2 Delivery Room Air Room Air Room Air 02/17/19 00:00 Intake Total 600 ml Output Total 650 ml Balance -50 ml Physical Exam: General - Alert and oriented, no apparent distress Abdomen - Soft, appropriately tender to palpation, non-distended, fundus firm at umbilicus Extremities - no edema, negative Jose Raul's bilaterally [] Assessment: 1. post- day # 1, status post spontaneous vaginal delivery. Recovering well, hemodynamically stable 2. Leukocytosis secondary to labor and betamethasone Plan: Routine care. Encourage breast feeding. Encourage ambulation. Plan for discharge tomorrow. Vitals - Labs Vital Signs - I&O Vital Signs Date Time Temp Pulse Resp B/P (MAP) Pulse Ox O2 Delivery O2 Flow Rate FiO2 02/17/19 04:12 98.2 51 18 126/68 (87) 96 Room Air 02/17/19 00:14 97.6 55 18 117/67 (84) 95 Room Air 02/16/19 19:50 98.2 74 18 143/77 (99) 98 Room Air 02/16/19 17:35 98.2 87 20 121/72 (88) 98 Room Air 02/16/19 17:20 78 20 122/58 (79) 98 Room Air 02/16/19 17:05 81 20 124/59 (80) 98 Room Air 02/16/19 16:50 78 20 133/76 (95) 98 Room Air 02/16/19 16:35 72 20 125/63 (83) 98 Room Air 02/16/19 16:20 78 20 129/65 (86) 98 Room Air 02/16/19 16:05 98.0 82 20 134/64 (87) Room Air 02/16/19 15:50 98.8 90 20 135/68 (90) Room Air 02/16/19 15:35 98.5 104 20 134/78 (96) 100 Room Air 02/16/19 15:20 101 20 112/67 (82) 98 Room Air 02/16/19 15:05 86 20 99 Room Air 02/16/19 14:50 94 20 131/75 (93) 99 Room Air 02/16/19 14:35 92 20 120/71 (87) 93 Room Air 02/16/19 14:20 93 20 132/69 (90) 98 Room Air 02/16/19 14:05 73 20 120/74 (89) 94 Room Air 02/16/19 13:50 88 20 120/74 (89) 97 Room Air 02/16/19 13:35 86 20 132/71 (91) 98 Room Air 02/16/19 13:20 95 20 118/71 (87) 98 Room Air 02/16/19 13:05 71 20 121/71 (88) 98 Room Air 02/16/19 12:50 80 18 120/70 (87) 98 Room Air 02/16/19 12:35 82 18 121/76 (91) 99 Room Air 02/16/19 12:20 97.7 88 18 129/82 (98) 99 Room Air 02/16/19 12:05 90 18 120/76 (91) 100 Room Air 02/16/19 11:50 100 18 112/68 (83) 99 Room Air 02/16/19 11:35 85 18 107/59 (75) 97 Room Air 02/16/19 11:20 90 18 120/68 (85) 98 Room Air 02/16/19 11:15 92 18 117/64 (81) 99 Room Air 02/16/19 11:00 94 18 117/64 (81) 98 Room Air 02/16/19 10:45 96 18 115/74 (88) 98 Room Air 02/16/19 10:30 106 20 118/64 (82) 98 Room Air 02/16/19 10:25 115 20 117/63 (81) 98 Room Air 02/16/19 10:20 109 20 117/63 (81) 99 Room Air 02/16/19 10:15 106 20 92/54 (67) 97 Room Air 02/16/19 10:10 114 20 106/55 (72) 99 Room Air 02/16/19 10:05 110 20 119/62 (81) 98 Room Air 02/16/19 10:00 98 20 128/80 (96) 98 Room Air 02/16/19 09:55 114 20 127/72 (90) 9 Room Air 02/16/19 09:50 114 20 124/74 (91) 100 Room Air 02/16/19 09:30 95 20 112/61 (78) Room Air 02/16/19 09:00 96.7 109 20 123/73 (90) Room Air I & O 02/17/19 07:00 Intake Total 1600 ml Output Total 650 ml Balance 950 ml Labs Laboratory Tests 02/17/19 06:30: White Blood Count 26.9H, Red Blood Count 3.83L, Hemoglobin 11.9, Hematocrit 35, Mean Corpuscular Volume 92, Mean Corpuscular Hemoglobin 31, Mean Corpuscular Hemoglobin Concent 34, Red Cell Distribution Width 13.0, Platelet Count 291, Mean Platelet Volume 9.4, Neutrophils (%) (Auto) 85H, Lymphocytes (%) (Auto) 8L , Monocytes (%) (Auto) 7, Eosinophils (%) (Auto) 0, Basophils (%) (Auto) 0, Neutrophils # (Auto) 22.9H, Lymphocytes # (Auto) 2.2, Monocytes # (Auto) 1.8H, Eosinophils # (Auto) 0.0, Basophils # (Auto) 0.0, Neutrophils % (Manual) 88, Lymphocytes % (Manual) 10, Monocytes % (Manual) 2, Eosinophils % (Manual) 0, Basophils % (Manual) 0, Band Neutrophils 0, Blood Morphology Comment NORMAL ANA LAURA WANG DO February 17, 2019 07:50
[2019-02-17 08:30] VITALS: BP 109/58
[2019-02-17] MEDS: DOCUSATE SODIUM 100 MG (COLACE) CAP PO SCH ×2 (08:36→20:24)
[2019-02-17] MEDS: PRENATAL VITAMIN 1 EA TAB PO SCH (08:37)
[2019-02-17] MEDS: FERROUS SULF 325 MG (IRON) TAB PO SCH (08:37)
[2019-02-17 12:30] VITALS: BP 112/70
[2019-02-17] MEDS ORDERED: TETANUS,DIPTH,PERTUSS P/F (BOOSTRIX) 0.5 ML VIAL IM ONE (14:02)
[2019-02-17] MEDS ORDERED: HYDROcodone/APAP 5 MG/325 MG (LORTAB) TAB PO PRN (18:45)
[2019-02-17] MEDS ORDERED: HYDROcodone/APAP 5 MG/325 MG (LORTAB) TAB ONE (19:04)
--- NOTE | 2019-02-17 19:10 | NUR ---
Baby in room this shift - bonding well. Pt complains of uterine cramping especially with nursing. Warm blanket applied to abdomen. [id number] Dr Perez notified per phone of pt request for further analgesia. Motrin not due for 1.5 hrs. Lortab ordered and given at 1910. Visiting with family
[2019-02-17 20:25] VITALS: BP 139/80
[2019-02-18 02:30] VITALS: BP 123/63
[2019-02-18] MEDS: IBUPROFEN 600 MG (MOTRIN) TAB PO SCH ×3 (02:36→15:20)
[2019-02-18] MEDS: ACETAMINOPHEN 500 MG TAB (TYLENOL) PO SCH ×2 (06:20→15:20)
--- NOTE | 2019-02-18 07:51 | Postpartum Progress Note ---
Note Note Day # 2 Subjective: Patient is without complaints. Ambulating, voiding. Tolerating a regular diet without nausea or vomiting. Normal lochia. Pain is well controlled with oral pain medications. Objective: Physical Exam: General - Alert and oriented, no apparent distress Abdomen - Soft, appropriately tender to palpation, non-distended, fundus firm at umbilicus Extremities - no edema, negative Jose Raul's bilaterally Assessment: PPD 2 NVD labor and delivery Leukocytosis- likely due to bmz dosing, repeat CBC pending this AM Plan: Routine care. Encourage breast feeding. Encourage ambulation. Ferrous sulfate supplementation. Plan for discharge today Vitals - Labs Vital Signs - I&O Vital Signs Date Time Temp Pulse Resp B/P (MAP) Pulse Ox O2 Delivery O2 Flow Rate FiO2 02/18/19 02:30 97.8 58 16 123/63 (83) 97 Room Air 02/17/19 20:25 99.0 71 16 139/80 (99) 97 Room Air 02/17/19 12:30 98.6 72 16 112/70 (84) Room Air 02/17/19 08:30 98.9 60 16 109/58 (75) 99 Room Air CLAUDIA FROST DO February 18, 2019 07:51
[2019-02-18 08:51] LABS: BASOPHILS # (AUTO) 0.1 10^3/uL (0.0-0.1); BASOPHILS % (AUTO) 0 % (0-10); EOSINOPHILS # (AUTO) 0.1 10^3/uL (0.0-0.3); EOSINOPHILS % (AUTO) 1 % (0-10); HEMATOCRIT 40 % (35-52); HEMOGLOBIN 13.7 G/DL (11.5-16.0); LYMPHOCYTES # (AUTO) 3.4 X 10^3 (1.0-4.0); LYMPHOCYTES % (AUTO) 19 % (12-44); MEAN CORPUSCULAR HEMOGLOBIN 31 PG (25-34); MEAN CORPUSCULAR HGB CONC 34 G/DL (32-36); MEAN CORPUSCULAR VOLUME 91 FL (80-99); MEAN PLATELET VOLUME 9.6 FL (7.4-10.4); MONOCYTES # (AUTO) 1.6 X 10^3 (0.0-1.0); MONOCYTES % (AUTO) 9 % (0-12); NEUTROPHILS # (AUTO) 12.8 X 10^3 (1.8-7.8); NEUTROPHILS % (AUTO) 71 % (42-75); PLATELET COUNT 317 10^3/uL (130-400); RED CELL DISTRIBUTION WIDTH 13.4 % (10.0-14.5)
[2019-02-18 09:00] VITALS: BP 132/79
[2019-02-18] MEDS: DOCUSATE SODIUM 100 MG (COLACE) CAP PO SCH (09:07)
[2019-02-18] MEDS: FERROUS SULF 325 MG (IRON) TAB PO SCH (09:07)
[2019-02-18] MEDS: PRENATAL VITAMIN 1 EA TAB PO SCH (09:07)
--- NOTE | 2019-02-18 09:30 | NUR ---
CBC results reported to Dr. Perez. Discharge order rec'd.
--- NOTE | 2019-02-18 12:25 | NUR ---
DISCHARGE INSTRUCTIONS REVIEWED WITH COPY TO PT. RXS TRANSMITTED TO [facility]. STATES UNDERSTANDING OF ALL INSTRUCTIONS AND NEED TO F/U INSTRUCTED AND NEEDED. PT TEARFUL WHEN FIRST ENTERED ROOM. PT'S MOTHER TO ROOM TO TAKE OLDER CHILD TO LUNCH. PT UPSET R/T INFANT POSSIBLY NEEDING TO STAY.
--- NOTE | 2019-02-18 15:00 | NUR ---
INFANT AND DOING SNS. GOOD INTERACTION NOTED.
[2019-02-18 17:00] VITALS: BP 136/73
--- NOTE | 2019-02-18 18:15 | NUR ---
PT CALLED THIS RN TO ROOM WITH C/O "SOMETHING PINK PROTRUDING FROM THE VAGINA". STATES IT HAPPENED BEFORE DURING AND DR. WANG TOLD HER LONG SHE COULD PUSH IT BACK UP IT WILL BE OKAY UNTIL PT IS FINISHED HAVING CHILDREN AND A REPAIR CAN BE DONE.
--- NOTE | 2019-02-18 18:20 | NUR ---
INSPECTED VAGINA WITH NOTHING NOTED AT THIS TIME. PT STATES SHE PUSHED IT BACK UP.
--- NOTE | 2019-02-18 18:55 | NUR ---
DR. FROST NOTIFIED OF PT'S COMPLAINT REGARDING SOMETHING PROTRUDING FROM HER VAGINA.
[2019-02-18 19:00] VITALS: BP 136/73
--- NOTE | 2019-02-18 19:00 | NUR ---
PT DISMISSED FROM WS TO ROOMING-IN PARENT.
== END 2019-02-18 19:00 | disposition home or self-care (01) | DRG 806 ==
LOC: LDRP 11:42
PROVIDERS: ADMIT Obstetrics & Gynecology; ATTEND Obstetrics & Gynecology
PROC: 10E0XZZ Delivery of Products of Conception, External Approach (ICD-10-PCS; principal; 2019-02-16)
DX: O60.14X0 Preterm labor third trimester with preterm delivery third trimester, not applicable or unspecified (principal); O99.824 Streptococcus B carrier state complicating childbirth; O99.12 Other diseases of the blood and blood-forming organs and certain disorders involving the immune mechanism complicating childbirth; D72.829 Elevated white blood cell count, unspecified; O99.344 Other mental disorders complicating childbirth; F32.9 Major depressive disorder, single episode, unspecified; O99.52 Diseases of the respiratory system complicating childbirth; J30.2 Other seasonal allergic rhinitis; Z3A.36 36 weeks gestation of pregnancy; Z37.0 Single live birth; Z87.51 Personal history of pre-term labor; Z86.32 Personal history of gestational diabetes; Z67.91 Unspecified blood type, Rh negative; Z23 Encounter for immunization
CPT/HCPCS: 36415; 85007; 85025; 85027; 86850; 86900; 86901; 90715

== ENCOUNTER → 2019-04-03 | Outpatient (CLI) | payer BC, OTHER ==
[~2019-04-03] MED LIST changes: +ACET-77 PO; +CATHETER FLUSH 10 ML SYR IV PRN; +IBUP-844 PO
== END ==
LOC: CARD 09:49
PROVIDERS: ATTEND Nurse Practitioner Family
DX: R10.11 Right upper quadrant pain (principal)

== ENCOUNTER → 2019-06-15 | Outpatient (CLI) | payer BC, OTHER ==
--- NOTE | 2019-06-15 18:53 | Diagnostic Imaging Report ---
EXAMINATION: Hepatobiliary scan. INDICATION: Abdominal pain. FINDINGS: The study was performed following administration of 4.97 mCi of Choletec and 8 ounces of Ensure. There are no prior nuclear medicine hepatobiliary scans available for comparison. The abdominal ultrasound exam of 04/10/2019 failed to show any sign of cholelithiasis or acute cholecystitis. On this study, there is uptake of the radiotracer by the gallbladder before 30 minutes. This would weigh against the diagnosis of acute cholecystitis. There is also extension of the radiotracer into the small bowel indicating that the common bile duct is not obstructed. The ejection fraction is 44.2% (normal greater than 35%). IMPRESSION: 1. There is no evidence for acute cholecystitis or for obstruction of the common bile duct. 2. The ejection fraction is 44.2% and within normal limits. Dictated by: Dictated on workstation # [id number]
== END ==
LOC: CARD 09:39
PROVIDERS: ATTEND Surgery
DX: R10.11 Right upper quadrant pain (principal)
CPT/HCPCS: 78227; 84703

== ENCOUNTER 2019-06-28 12:00 | Outpatient (CLI) | payer BC, OTHER ==
[~2019-06-28] VITALS: Ht 160 cm; Wt 54.4 kg
[~2019-06-28 12:00] MED LIST changes: -CATHETER FLUSH 10 ML SYR IV PRN
[2019-06-28] MEDS ORDERED: OMEP20CA13 PO (12:21)
[2019-06-28] MEDS ORDERED: DICY20TA10 PO (12:21)
[2019-06-28] MEDS ORDERED: FLUO10CA19 PO (12:21)
[2019-06-28] MEDS ORDERED: [UNRECOGNIZED DRUG - CODE] PO (12:21)
== END 2019-06-28 12:32 | disposition home or self-care (01) ==
LOC: PREOP 12:00
PROVIDERS: ATTEND Surgery
DX: Z01.818 Encounter for other preprocedural examination (principal)

== ENCOUNTER 2019-07-06 07:00 | Day surgery (SDC) | payer BC, OTHER ==
[~2019-07-06] VITALS: Ht 160 cm; Wt 54.5 kg
[2019-07-06] VITALS (12 sets, daily range): BP systolic 114–140; BP diastolic 70–99
[~2019-07-06 07:00] MED LIST changes: +DICY20TA10 PO; +FLUO10CA19 PO; +OMEP20CA13 PO; +[UNRECOGNIZED DRUG - CODE] PO
[2019-07-06] MEDS ORDERED: ceFAZolin INJECTION 1,000 MG in WATER (STERILE) FOR INJECTION 10 ML IV ONE (07:15)
[2019-07-06] MEDS: LACTATED RINGERS 1,000 ML IV PRN ×2 (07:20→11:35)
[2019-07-06 07:33] LABS: BASOPHILS % (AUTO) 0 % (0-10); EOSINOPHILS # (AUTO) 0.1 10^3/uL (0.0-0.3); EOSINOPHILS % (AUTO) 1 % (0-10); HEMATOCRIT 45 % (35-52); HEMOGLOBIN 15.6 G/DL (11.5-16.0); LYMPHOCYTES % (AUTO) 27 % (12-44); MEAN CORPUSCULAR HEMOGLOBIN 30 PG (25-34); MEAN CORPUSCULAR HGB CONC 35 G/DL (32-36); MEAN CORPUSCULAR VOLUME 86 FL (80-99); MEAN PLATELET VOLUME 8.5 FL (7.4-10.4); MONOCYTES # (AUTO) 0.6 X 10^3 (0.0-1.0); MONOCYTES % (AUTO) 7 % (0-12); NEUTROPHILS # (AUTO) 4.8 X 10^3 (1.8-7.8); NEUTROPHILS % (AUTO) 65 % (42-75); PLATELET COUNT 347 10^3/uL (130-400); RED CELL DISTRIBUTION WIDTH 13.4 % (10.0-14.5); WHITE BLOOD COUNT 7.5 10^3/uL (4.3-11.0)
[2019-07-06 07:36] LABS: SMEAR SCAN COMMENT YES
[2019-07-06] MEDS ORDERED: BUP/EPI 0.25% 1:200,000 (MARCAINE) 10 ML VIAL IJ ONE (07:41)
[2019-07-06] MEDS ORDERED: MIDAZOLAM 2 MG/2 ML (VERSED) VIAL IV ONE (07:45)
[2019-07-06] MEDS ORDERED: MIDAZOLAM 2 MG/2 ML (VERSED) VIAL ONE (07:53)
[2019-07-06] MEDS ORDERED: proPOfol 200 MG/20 ML (DIPRIVAN) VIAL IV ONE (07:53)
[2019-07-06] MEDS ORDERED: SEVOFLURANE (ULTANE) 15 ML INHAL SOLN ONE (07:53)
[2019-07-06] MEDS ORDERED: ONDANSETRON 4 MG/2 ML (SDV) Z0FRAN ONE (07:53)
[2019-07-06] MEDS ORDERED: fentaNYL INJECTION 100 MCG/2 ML AMP ONE (07:53)
[2019-07-06] MEDS ORDERED: ROCURONIUM 10 MG/ML 5 ML SYRINGE IV ONE (07:53)
[2019-07-06] MEDS ORDERED: LIDOCAINE PF 2% 5 ML (XYLOCAINE) VIAL ONE (07:53)
[2019-07-06] MEDS ORDERED: DEXAMETHASONE 10 MG/ML (DECADRON) 1 ML VIAL ONE (07:53)
--- NOTE | 2019-07-06 08:23 | Progress Note-Pre Operative ---
Pre-Operative Progress Note H&P Reviewed The H&P was reviewed, patient examined and no changes noted. Date Seen by Provider: Jul 06, 2019 Time Seen by Provider: 08:20 Date H&P Reviewed: Jul 06, 2019 Time H&P Reviewed: 08:15 Pre-Operative Diagnosis: Symptomatic Biliary Dyskinesia, Reflux RADHA DOWLING APRN Jul 06, 2019 08:23
[2019-07-06] MEDS ORDERED: HYDROcodone/APAP 5 MG/325 MG (LORTAB) TAB PO ONE (08:30)
[2019-07-06] MEDS ORDERED: ONDANSETRON 4 MG/2 ML (SDV) Z0FRAN IVP PRN ×2 (08:30→11:30)
[2019-07-06] MEDS ORDERED: ACETAMINOPHEN 325 MG TABLET PO PRN (08:30)
[2019-07-06] MEDS ORDERED: morphine INJ 10 MG/ML 1ML (SYR OR VIAL) IVP PRN (08:30)
[2019-07-06] MEDS ORDERED: HYDR-3816 PO (08:31)
--- NOTE | 2019-07-06 08:35 | Discharge Inst-Surgical ---
D/C Lap Instructions-KIDO Reconcile Patient Problems Problems Reviewed?: Yes New, Converted, or Re-Newed RX: RX on Chart Follow Up Appt in 2 weeks Activity as tolerated No driving for 24 hours No driving while on pain medications Incentive Spirometry use every 2 hours while awake Regular Diet Avoid Alcohol, Caffeine, Spicy [place] and Acid foods. Drink 64 fluid oz or more of fluids per day. Symptoms to Report: Fever over 101 degree F, Nausea/Vomiting Infection Signs and Symptoms to report: Increased redness, Foul odor of wound, Increased drainage Bathing instructions: May shower Operative Area Clean/Dry; Keep incision clean/dry If any problems/questions: Contact your physician or go to Emergency Room RADHA DOWLING APRN Jul 06, 2019 08:34
[2019-07-06] MEDS ORDERED: HYDROmorphone 2 MG/ML VIAL (DILAUDID) ONE (10:05)
[2019-07-06] MEDS ORDERED: KETOROLAC 30 MG/ML VIAL ONE (10:47)
--- NOTE | 2019-07-06 10:55 | Progress Note-Post Operative ---
Post-Operative Progess Note Surgeon (s)/Extractions Technologist (s) Surgeon Dr. Jason Gallardo M.D. Extractions Technologist: Jaguar Dowling [employer]TRIDGE ASSEMBLING MACHINE ADJUSTER Pre-Operative Diagnosis Symptomatic Biliary Dyskinesia, Reflux Post-Operative Diagnosis Biliary Dyskinesia, Reflux esophagitis stage II, small hiatal hernia (1.5 cm), mild gastritis Procedure & Operative Findings Date of Procedure 07/06/19 Procedure Performed/Findings Laparoscopic Cholecystectomy and EGD with biopsy Anesthesia Type GET Estimated Blood Loss Estimated blood loss (mL): minimal Specimens/Packing Specimens Removed 1) Gallbladder 2) Antrum 3) GE Junction JAGUAR DOWLING CARTRIDGE ASSEMBLING MACHINE ADJUSTER Jul 06, 2019 10:55
[2019-07-06] MEDS ORDERED: HYDROmorphone 2 MG/ML VIAL (DILAUDID) IV ONE (11:30)
[2019-07-06] MEDS ORDERED: PANT40TA2 PO (13:05)
[2019-07-06] MEDS ORDERED: oxyCODONE/APAP 5/325MG (PERCOCET 5) TABLET PO ONE (13:15)
[2019-07-06] MEDS ORDERED: OXYC-188 PO (13:15)
--- NOTE | 2019-07-06 15:09 | Anesthesia-General Post-Op ---
General Patient Condition Mental Status/LOC: Same as Preop Cardiovascular: Satisfactory Nausea/Vomiting: Absent Respiratory: Satisfactory Pain: Controlled Complications: Absent Post Op Complications Complications None Follow Up Care/Instructions Patient Instructions None needed. Anesthesia/Patient Condition Patient Condition Patient was seen this morning after the procedure and she was doing well, no complaints, stable vital signs, no apparent adverse anesthesia problems. MARSHALL ROE DO Jul 06, 2019 15:09
--- NOTE | 2019-07-06 16:43 | OPERATIVE REPORT ---
DATE OF SERVICE: 07/06/2019 ATTENDING PRIMARY CARE PHYSICIAN: Noris Toney DO PREOPERATIVE DIAGNOSES: 1. Symptomatic biliary dyskinesia 2. Gastroesophageal reflux disease. POSTOPERATIVE DIAGNOSES: Reflux esophagitis stage II, small hiatal hernia 1.5 cm in size, moderate gastritis, distended gallbladder with mild chronic inflammatory changes. No gallstones identified. PROCEDURES PERFORMED: Laparoscopic cholecystectomy, esophagogastroduodenoscopy with biopsy. SURGEON: Rima Martinez MD. ANESTHESIA: General endotracheal. ESTIMATED BLOOD LOSS: Minimal. FINDINGS: Reflux esophagitis stage II, small hiatal hernia 1.5 cm in size, moderate gastritis, distended gallbladder with mild chronic inflammatory changes. No gallstones identified. DISPOSITION: The patient tolerated the procedure well. INDICATIONS: The patient is a 34-year-old female with a 6-month history of pain in the right upper abdominal quadrant with intermittent episodes of nausea as well as diarrhea. She also reports an epigastric burning sensation and was started on Prilosec; however, states that she continued to have symptoms. She did have an ultrasound performed, which did not show any gallstones; however, a HIDA scan was performed, which did show normal ejection fraction; however, she did have a severe reproduction of symptoms with nausea and diarrhea after the administration of Kinevac analogue consistent with a biliary dyskinesia. She also reports that she has had epigastric pain and reflux and regurgitation, which first started when she was with her third child in 02/2019. DESCRIPTION OF PROCEDURE: The patient was brought to the operating room, laid supine on the table. After adequate IV pain and sedative medications and general endotracheal intubation, the abdomen was prepped and draped in standard surgical fashion. A 0.5% Marcaine with epinephrine was used to anesthetize the overlying skin in the left upper abdominal quadrant, transverse skin incision made using a 15-blade. An #0 silk suture was applied to the medial aspect of the incision for retraction and a Veress needle inserted with a low opening pressure of 0 mmHg. The abdomen was then insufflated to 15 mmHg pressure. The Veress needle removed and a 5 mm Xcel trocar placed followed by a 5 mm 45-degree angle laparoscope visualizing the peritoneal cavity. A 4-quadrant abdominal exploration was performed. She did have a distended gallbladder with omental adhesions towards the fundus and body of the gallbladder consistent with a chronic acalculous cholecystitis. What was visualized of the liver, small bowel and stomach appeared normal. Under direct visualization, we then proceeded to place a supraumbilical 10 mm port after the skin and peritoneal lining were anesthetized using 0.5% Marcaine with epinephrine and a transverse skin incision made using a 15-blade. In a similar manner, a right upper abdominal quadrant 5 mm port was placed. The fundus of the gallbladder was then retracted anteriorly and superiorly. The omental adhesions were then taken down using electrocautery as well as blunt dissection. The hepatoduodenal ligament was then opened using cautery as well as blunt dissection. The entire critical view of safety was identified including the triangle of Calot as well as the cystic duct and artery only two structures going into the gallbladder as well as the cystic plate behind the proximal gallbladder. A timeout was then taken and the cystic duct and artery were then clipped proximally and distally and cut with EndoShears. The gallbladder was then dissected off the liver bed using electrocautery. The cystic duct and artery were then clipped proximally, distally and cut with EndoShears. The gallbladder was then dissected off the liver bed using cautery on hook instrument with visualization of good hemostasis as well as no leaking ducts of Luschka. The gallbladder was removed through the 10 mm port site using an EndoCatch bag. The gallbladder was removed through the 10 mm port site using an EndoCatch bag. The 10 mm port site fascia and peritoneum were then closed under direct visualization using a Roland-Pj device and #0 Vicryl suture. Abdomen was desufflated and remaining ports removed. Wounds were then cleaned and covered with Dermabond. Under the same anesthesia, we then proceeded with the EGD portion of the procedure. The mouthpiece was applied. The endoscope was placed in the mouth, visualizing the pharynx and hypopharyngeal region. Vocal cords, epiglottis and vallecula identified and appeared to be normal. Endoscope was gently intubated into the esophageal opening and esophagus insufflated. The endoscope was then advanced through the first, second and third portion of the esophagus at the level of the GE junction, a reflux esophagitis stage II identified. There were no ulcers or strictures identified in this region. A biopsy was taken using forceps with visualization of good hemostasis. The endoscope was then advanced into the stomach and endoscope retroflexed, visualizing a small hiatal hernia approximately 1.5 cm in size. There was a moderate gastritis. No formal ulcerations, polyps, or any neoplasms. A biopsy was taken of the stomach antrum to rule out H. pylori with visualization of good hemostasis. Endoscope was then advanced to the pylorus and the first and second portion of the duodenum, which appeared normal with no distal obstructions. The endoscope was then slowly withdrawn while taking a second look and suctioning of residual air with no additional findings. The patient tolerated the procedure well. We will recommend the necessary lifestyle and diet accommodation including small and more frequent meals, avoidance of eating at night as well as head elevation while lying supine. She also needs to avoid caffeinated beverages, spicy, greasy and acidic foods. We will also start her on Protonix 40 mg daily. We also will recommend that she refrain from heavy lifting and exertion for the next two weeks and then slowly increase activity as tolerated from that point forward. Job ID: [id number] DocumentID: [id number] Dictated Date: 07/06/2019 11:38:05 Clerical Support Specialist Date: 07/06/2019 16:42:39 Dictated By: RIMA MARTINEZ MD
== END 2019-07-06 14:25 | disposition home or self-care (01) ==
LOC: SDC 07:00
PROVIDERS: ATTEND Surgery
DX: K81.1 Chronic cholecystitis (principal); K21.0 Gastro-esophageal reflux disease with esophagitis; K29.70 Gastritis, unspecified, without bleeding; K66.0 Peritoneal adhesions (postprocedural) (postinfection); K82.8 Other specified diseases of gallbladder; K44.9 Diaphragmatic hernia without obstruction or gangrene; K31.89 Other diseases of stomach and duodenum; F32.9 Major depressive disorder, single episode, unspecified; Z88.1 Allergy status to other antibiotic agents; Z88.5 Allergy status to narcotic agent; Z88.8 Allergy status to other drugs, medicaments and biological substances; Z90.89 Acquired absence of other organs; Z79.891 Long term (current) use of opiate analgesic; Z79.899 Other long term (current) drug therapy
CPT/HCPCS: 36415; 84703; 85025; 87081; 88304; 88305; 94664

== ENCOUNTER → 2021-06-02 | Outpatient (CLI) | payer BC, OTHER ==
[~2021-06-02] MED LIST changes: -ACET-77 PO; +ACET-78 PO; -FLUO10CA19 PO; +FLUO10CA31 PO; +HYDR-34 PO; +NORE-211 PO; -OMEP20CA13 PO; +OMEP20CA18 PO; +OXYC-188 PO; +PANT40TA2 PO; -[UNRECOGNIZED DRUG - CODE] PO
--- NOTE | 2021-06-02 16:09 | Diagnostic Imaging Report ---
INDICATION: Heel pain. COMPARISON: None. FINDINGS: Two views of the left calcaneus were obtained and show no fractures, dislocations, or other acute bony abnormalities. Joint spaces are well maintained throughout. The soft tissues appear unremarkable. No radiopaque foreign bodies are identified. IMPRESSION: Unremarkable radiographic exam of the left calcaneus. Dictated by: Dictated on workstation # [id number]
--- NOTE | 2021-06-02 16:10 | Diagnostic Imaging Report ---
INDICATION: Foot pain. COMPARISON: None. FINDINGS: Three views of the left foot demonstrate no acute fracture or dislocation. There are no focal osseous lesions. There is no soft tissue swelling. Joint spaces are well maintained. No radiopaque foreign bodies are seen. IMPRESSION: No acute fractures or dislocations of the left foot. Dictated by: Dictated on workstation # [id number]
== END ==
LOC: RAD 15:17
PROVIDERS: ATTEND Family Medicine
DX: S99.922A Unspecified injury of left foot, initial encounter (principal); X58.XXXA Exposure to other specified factors, initial encounter
CPT/HCPCS: 73630; 73650

== ENCOUNTER → 2021-06-10 | Outpatient (CLI) | payer BC, OTHER ==
--- NOTE | 2021-06-10 14:37 | Diagnostic Imaging Report ---
PROCEDURE: US PELVIC (NON OB) TECHNIQUE: Multiple real-time grayscale images were obtained over the pelvis in various projections transabdominally. INDICATION: Irregular bleeding. FINDINGS: Uterus measures 8.3 x 3.4 x 4.9 cm. Endometrial stripe is 3 mm. There are no myometrial masses. Right ovary measures 2.5 x 2.3 x 1.8 cm. Left ovary measures 3.3 x 1.4 x 1.4 cm. There is normal blood flow to both ovaries. No cyst are demonstrated. There is no free fluid. IMPRESSION: Normal pelvic ultrasound. Dictated by: Dictated on workstation # [id number]
== END ==
LOC: RAD 13:45
PROVIDERS: ATTEND Obstetrics & Gynecology
DX: N92.1 Excessive and frequent menstruation with irregular cycle (principal)
CPT/HCPCS: 76856

== ENCOUNTER → 2021-08-06 | Outpatient (CLI) | payer BC, OTHER ==
--- NOTE | 2021-08-06 11:14 | Diagnostic Imaging Report ---
EXAMINATION: Magnetic resonance imaging of the left ankle without contrast. DATE: August 06, 2021. COMPARISON: None. HISTORY: 36-year-old female, left ankle pain. TECHNIQUE: Magnetic Resonance Imaging sequences were performed of the ankle without contrast. FINDINGS: TENDONS AND LIGAMENTS: The Achilles tendon is unremarkable. The posterior flexor tendons - tibialis posterior, flexor digitorum longus, flexor hallucis longus - are intact. The peroneal tendons - peroneus longus and peroneus brevis - are intact. The anterior extensor tendons - tibialis anterior, extensor hallucis longus, and extensor digitorum longus tendons - are intact. The anterior and posterior syndesmotic ligaments are intact. The anterior talofibular, posterior talofibular, calcaneofibular, and deltoid ligaments are intact. The plantar fascia is intact. JOINTS: The ankle mortise is intact. The subtalar and visualized joints of the mid-foot are intact. BONE: The bones all have normal configuration. The bone marrow signal is within normal limits. Specifically, negative for fracture, osteomyelitis, osteonecrosis, or marrow replacing process. The talar dome is intact. BURSAE AND SOFT TISSUES: There is susceptibility artifact near the level of the distal fibula which may relate to prior surgery. IMPRESSION: 1. Intact ankle ligaments and tendons. 2. No acute fracture or bone contusion. Intact talar dome. 3. Unremarkable joint assessment. 4. Susceptibility artifact at the level of the distal fibula is likely relating to prior surgery. Additional soft tissue assessment is unremarkable. Dictated by: Dictated on workstation # [id number]
== END ==
LOC: RAD 10:15
PROVIDERS: ATTEND Orthopaedic Surgery
DX: S86.312A Strain of muscle(s) and tendon(s) of peroneal muscle group at lower leg level, left leg, initial encounter (principal); X58.XXXA Exposure to other specified factors, initial encounter
CPT/HCPCS: 73721